=== PATIENT | female | born 1995 | race American Indian/Alaskan Native ===

== ENCOUNTER 2021-04-07 17:14 | Outpatient (CLI) | payer OTHER, MEDICAID ==
[2021-04-07 18:47] LABS: Hematocrit 36.9 % (30.3-42.9); Mean Corpuscular HGB Conc 33 % (30-34); Mean Corpuscular Volume 88 fl (79-97); Platelet Count 213 K/mm3 (140-440); Red Cell Distribution Width 13.5 % (13.2-15.2)
[2021-04-07 19:07] LABS: Alanine Aminotransferase 16 units/L (7-56)
[2021-04-07 19:11] LABS: Bacteria,Urine 1+ /HPF (Negative); Bilirubin,Urine NEG (Negative); Blood,Urine NEG (Negative); Color,Urine Yellow (Yellow); Mucus,Urine FEW /HPF; Protein,Urine <15 mg/dL mg/dL (Negative); Urobilinogen,Urine < 2.0 mg/dL (<2.0)
[2021-04-07 19:24] LABS: Uric Acid 6.1 mg/dL (3.5-7.6)
[2021-04-07 19:51] VITALS: BP 110/58
== END 2021-04-07 20:20 | disposition home or self-care (01) ==
LOC: TRG 17:14 → APU 17:15 → TRG 20:20
PROVIDERS: ATTEND Obstetrics & Gynecology
DX: Z34.93 Encounter for supervision of normal pregnancy, unspecified, third trimester (principal); Z3A.38 38 weeks gestation of pregnancy
CPT/HCPCS: 36415; 59025; 81001; 82565; 83615; 84450; 84460; 84550; 85027